=== PATIENT | male | born 1935 | race Caucasian/White ===

== ENCOUNTER 2018-01-16 11:25 | Inpatient (IN) | payer OTHER ==
[~2018-01-16] VITALS: Ht 165.1 cm; Wt 93.0 kg
--- NOTE | ~2018-01-16 | H ---
[facility] [place] [address] HISTORY AND PHYSICAL Name: KAYLEIGH DINH Room #: 170-15 ADM IN M.R.#: [id number] Admission: 01/16/18 Attend Phys: Humble Dickerson MD Discharge: Date of : 35 Report #: [id number] THIS REPORT FOR: //name// CC: FAM unknown Humble Dickerson DATE OF SERVICE: 01/16/2018 CHIEF COMPLAINT: Knee swelling, right more than the left, along with the pain. HISTORY OF PRESENT ILLNESS: The patient is an 82-year-old male with history of hypertension, coronary artery disease, BPH, who presented to the Emergency Room complaining of right knee pain and swelling. Symptoms have been ongoing over the last 3 to 4 days. Pain has been worsened to the point that he is unable to ambulate. The patient denies any fever or chills. The patient denies any recent trauma. No nausea or vomiting. PAST MEDICAL HISTORY: Significant for 1. Hypertension. 2. Coronary artery disease. 3. History of BPH. 4. History of appendectomy. ALLERGIES: ALLERGIC TO PENICILLIN AND ASPIRIN, please look at the nursing documentation for reaction. HOME MEDICATIONS: He takes a blood pressure pill, he does not know the name. He was on pain medication for a DJD in the past, and he has been out of his pain medication for the last 3 weeks. Apparently, his PCP told him to come and see him in February to get a refill. FAMILY HISTORY: Significant for hypertension, coronary artery disease. REVIEW OF SYSTEMS: CONSTITUTIONAL: No fever, no chills, no weight loss. EYES: No change in vision. THROAT: Denies any sore throat. CARDIOVASCULAR: No chest pain, dizziness, palpitation. RESPIRATORY: No cough or expectoration. GASTROINTESTINAL: No nausea or vomiting. GENITOURINARY: No dysuria, hematuria. NEUROLOGIC: No focal numbness or weakness of the extremities. PSYCHIATRIC: No anxiety and depression. The 12-point review of system is negative other than the positive and negative dictated in the history of present illness and the review of system. [address] [address] HISTORY AND PHYSICAL Name: KAYLEIGH DINH Room #: 170-15 [facility] IN .R.#: [id number] Admission: 01/16/18 Attend Phys: Humble Dickerson MD Discharge: Date of : 35 Report #: [id number] PHYSICAL EXAMINATION: VITAL SIGNS: Reveal blood pressure is 134/82, heart rate of 85 per minute, afebrile. GENERAL: The patient is awake and alert, not in acute respiratory distress. HEENT: Pupils equal, reactive to light, nonicteric conjunctivae. Throat appears normal. NECK: Supple, no JVD, no bruit, no lymphadenopathy. CARDIOVASCULAR SYSTEM: S1, S2, negative S3, no murmur. CHEST: Bilateral air entry present. Clear on auscultation. ABDOMEN: Soft, bowel sounds present, no mass, no organomegaly, no tenderness. PERIPHERY: No pedal edema. No calf tenderness. Dorsalis pedis 1+. NEUROLOGICAL: No gross motor or sensory deficit. EXTREMITIES: Right knee is swollen. There is effusion noted. No erythema noted. No increased warmth. There is marked tenderness on movement: Left knee. There is very mild swelling noted. LABORATORY DATA: Reviewed. White count is hemoglobin is 14.8, platelets 308. Sodium is 133, BUN and creatinine are 32 and 1.8. ASSESSMENT: 1. Right knee pain and swelling. Rule out degenerative joint disease, rule out gout, rule out any infectious etiology. We will go ahead and obtain an x-ray of both knees. We will consult Orthopedic Surgery. 2. Pain control. 3. Mild leukocytosis. We will repeat labs in the morning. 4. Chronic kidney disease stage 3, creatinine of 1.8. We will need to monitor closely. We will start him on gentle IV hydration. 5. History of hypertension and coronary artery disease. We will try to obtain his home medication list. 6. Deep venous thrombosis prophylaxis present. The patient will be presented with SCD on the legs for DVT prophylaxis until orthopedic evaluation planned. 7. 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 Treatment plan has been explained to the patient in detail. <ELECTRONICALLY SIGNED> By: Humble Dickerson MD 01/16/18 1607 [id number] Humble Dickerson MD /nt
--- NOTE | ~2018-01-16 | HC ---
[facility] [place] [address] CONSULTATION Name: KAYLEIGH DINH Room #: 454-P [facility] IN M.R.#: [id number] Admission: 01/16/18 Attend Phys: Humble Dickerson MD Discharge: Date of : 35 Report #: [id number] THIS REPORT FOR: //name// CC: FAM unknown Humble Dickerson REASON FOR CONSULTATION: I was asked to evaluate concerning fever and polyarthritis. HISTORY OF PRESENT ILLNESS: The patient is an 82-year-old presented on 01/16/2018, with diffuse joint pain and swelling. Most notable in his knees and ankles. It has been ongoing and worsening over the last 3 weeks. He has a history of psoriasis and rheumatoid arthritis. Also, reports degenerative arthritis. He denies any chills or sweats, although he has had fever. Also, reports a history of gout. He has been on anti-inflammatory medications in the past. He ran out of his medications and does not have a PCP currently. He has had no significant travel. REVIEW OF SYSTEMS: Notes no headache, pharyngitis symptoms, nausea, vomiting, or diarrhea. No dysuria or frequency. He has had a persistent nonproductive cough for several years. He has had coronary artery disease, but reports no chest pain or peripheral edema. ALLERGIES: ASPIRIN, PENICILLIN with swelling, does not know if he has tolerated any other beta-lactam antibiotics. MEDICATIONS: None prior to his admission. PAST MEDICAL HISTORY: Arthritis, degenerative rheumatoid; gout, hypertension, coronary artery disease, BPH, and appendectomy. FAMILY HISTORY: Rheumatoid arthritis. SOCIAL HISTORY: Nonsmoker, no significant alcohol intake. PHYSICAL EXAMINATION: VITAL SIGNS: Afebrile with maximum temperature 102.5 degrees earlier today. Hemodynamically stable. SKIN: He has evidence of seborrhea and psoriatic rash. No adenopathy. HEENT: Unremarkable. CHEST: Basilar crackles. No consolidation. HEART: Regular without murmur. ABDOMEN: Soft and nontender. No hepatosplenomegaly or mass. EXTREMITIES: Polyarthritis involving his hips, knees, ankles, distal feet, wrists, elbows, and shoulders. It seems most predominant in his lower extremities. The patient was unable to sit up in bed or roll over in bed. [facility] [address] [place] [address] CONSULTATION Name: KAYLEIGH DINH Room #: 454-P [facility] IN M.R.#: [id number] Admission: 01/16/18 Attend Phys: Humble Dickerson MD Discharge: Date of : 35 Report #: [id number] LABORATORY STUDIES: Ultrasound of lower extremities negative for DVT. Sedimentation rate 115. CRP 319. Chest x-ray, chronic scarring in both lower lobes. Hemoglobin 12.5, WBC 11.2, platelet count 257,000, 72% neutrophils, 20% lymphocytes. Sodium 136, potassium 3.4, bicarbonate 26, creatinine 1.7. Knee x-rays, [id number]-[id number] osteoarthritis in the right, mild osteoarthritis on the left. IMPRESSION: An 82-year-old with polyarthritis, psoriasis, renal failure, indeterminant if acute or chronic; basilar scarring with chronic cough, coronary artery disease. By his history, he reports rheumatoid arthritis and gouty arthritis in the past. Now with fever, I am suspecting related to his polyarthritis. This may be gouty in nature. We would recommend further workup to include SANDHYA, rheumatoid factor, uric acid, blood cultures, urinalysis with urine culture if appropriate, aspirate the joint for analysis, also screen human immunodeficiency virus. We will hold antibiotics tonight pending further studies. Could give dose of colchicine to see if this makes any effect prior to corticosteroids while we await aspiration of his joint. <ELECTRONICALLY SIGNED> By: Judd Govea MD 01/18/18 1429 02 57 Judd Govea MD /nt
[2018-01-16 11:26] VITALS: BP 134/82
[2018-01-16 13:00] LABS: BASOPHILS 0.9 % (0.0-2.0); HEMATOCRIT 41.9 % (42.0-52.0); HEMOGLOBIN 14.8 gm/dL (14.0-18.0); LYMPHOCYTES 8.5 % (24.0-44.0); MCH 32.8 pg (26.0-34.0); MCHC 35.4 g/dL (28.0-37.0); MCV 92.6 fL (80.0-100.0); MONOCYTES 10.3 % (1.0-8.0); PLATELET COUNT 308 thou/uL (150-400); POLYS 80.3 % (36.0-66.0); RBC 4.52 mil/uL (4.50-6.00); RDW 13.5 % (10.5-14.5); WBC 12.5 thou/uL (4.0-11.0)
[2018-01-16 13:07] LABS: CALCIUM 9.6 mg/dL (8.5-10.1); CREATININE 1.8 mg/dL (0.7-1.3); POTASSIUM 4.2 mmol/L (3.5-5.1)
[2018-01-16 22:34] VITALS: BP 114/62
[2018-01-17 00:07] VITALS: BP 123/63
[2018-01-17 04:33] VITALS: BP 128/67
[2018-01-17 07:03] LABS: HEMATOCRIT 35.6 % (42.0-52.0); HEMOGLOBIN 12.5 gm/dL (14.0-18.0); MCH 32.1 pg (26.0-34.0); MCHC 35.1 g/dL (28.0-37.0); MCV 91.4 fL (80.0-100.0); PLATELET COUNT 257 thou/uL (150-400); RDW 13.1 % (10.5-14.5); WBC 11.2 thou/uL (4.0-11.0)
[2018-01-17 07:11] LABS: CALCIUM 8.6 mg/dL (8.5-10.1); CREATININE 1.7 mg/dL (0.7-1.3); MAGNESIUM 2.3 mg/dL (1.8-2.4); POTASSIUM 3.4 mmol/L (3.5-5.1)
[2018-01-17 07:50] VITALS: BP 124/77
[2018-01-17 08:51] LABS: ABSOLUTE NEUTROPHILS 8.1 thou/uL (1.4-8.2); PLATELET ESTIMATE NORMAL
[2018-01-17] MEDS ORDERED: ICY HOT 4%-1%76.5 GM TOP (09:17)
[2018-01-17] MEDS ORDERED: HYDROCHLOROTH12.5 M1 PO (09:17)
[2018-01-17] MEDS ORDERED: OXYBUTYNIN ER 55 M1 PO (09:18)
[2018-01-17] MEDS ORDERED: PRAVACHOL40 MG PO (09:19)
[2018-01-17] MEDS ORDERED: PROSCAR 5MG TABL5 MG PO (09:19)
[2018-01-17] MEDS ORDERED: FLOMAX0.4 MG PO (09:20)
[2018-01-17 15:47] VITALS: BP 124/72
[2018-01-17 19:23] VITALS: BP 133/68
[2018-01-18 04:02] VITALS: BP 116/668; BP 116/68
[2018-01-18 07:30] LABS: HEMATOCRIT 35.2 % (42.0-52.0); HEMOGLOBIN 12.3 gm/dL (14.0-18.0); MCH 32.3 pg (26.0-34.0); MCV 92.1 fL (80.0-100.0); PLATELET COUNT 255 thou/uL (150-400); RBC 3.83 mil/uL (4.50-6.00); RDW 12.8 % (10.5-14.5); WBC 12.7 thou/uL (4.0-11.0)
[2018-01-18 07:42] LABS: CALCIUM 8.6 mg/dL (8.5-10.1); CREATININE 1.7 mg/dL (0.7-1.3); POTASSIUM 3.5 mmol/L (3.5-5.1)
[2018-01-18 08:00] VITALS: BP 109/68
[2018-01-18 08:24] LABS: % SATURATION 9 % (20-39); IRON 15 ug/dL (65-175); TIBC 165 ug/dL (250-450)
[2018-01-18 08:32] LABS: ABSOLUTE NEUTROPHILS 9.9 thou/uL (1.4-8.2)
[2018-01-18 08:43] LABS: ALBUMIN 2.5 g/dL (3.4-5.0); DIRECT BILIRUBIN 0.6 mg/dL (<0.1-0.3); TOTAL PROTEIN 6.9 g/dL (6.4-8.2)
[2018-01-18 08:51] LABS: FOLIC ACID 13.8 ng/mL (8.6-58.9)
[2018-01-18 09:05] LABS: URINE BLOOD TRACE (Negative); URINE CLARITY CLEAR; URINE GLUCOSE-RANDOM* TRACE (Negative); URINE KETONES NEGATIVE (Negative); URINE LEUKOCYTES-REFLEX NEGATIVE (Negative); URINE NITRITE-REFLEX NEGATIVE (Negative); URINE PROTEIN (DIPSTICK) 1+ (Negative); URINE UROBILINOGEN >= 8.0 E.U./dl (0.2-1.0)
[2018-01-18 09:06] LABS: URINE COLOR DK YELLOW
[2018-01-18 09:07] LABS: ICTOTEST (BILI CONFIRMATORY) Negative (Negative); URINE BILIRUBIN NEGATIVE (Negative)
[2018-01-18 09:14] LABS: CASTS None Seen /LPF (None Seen); MUCUS 0-3 Light strn/LPF (None Seen); SQUAMOUS 0-3 Few /LPF (0-3)
[2018-01-18 09:15] LABS: BACTERIA-REFLEX None Seen /HPF (None Seen); CRYSTALS None Seen /LPF (None Seen); URINE RBC None Seen /HPF (0-2); URINE WBC-REFLEX 0-5 Rare /HPF (0-5)
[2018-01-18 14:10] LABS: HIV ANTIBODY Non Reactive (Non Reactive)
[2018-01-18 16:00] VITALS: BP 117/59
[2018-01-18 17:00] LABS: SOURCE KNEE JOINT
[2018-01-18 17:07] LABS: CLARITY CLOUDY; COLOR RED; SOURCE KNEE JOINT; TOTAL VOLUME 5 mL
[2018-01-18 17:58] LABS: BF MACROPHAGE 2; BF NEUTROPHILS 96; BF NUCLEATED CELLS 10634; BF RBC 44605
[2018-01-18 20:17] VITALS: BP 111/62
[2018-01-19 03:36] VITALS: BP 111/69
[2018-01-19 07:54] VITALS: BP 121/74
[2018-01-19 08:46] LABS: SOURCE SYNOVIAL
[2018-01-19 09:13] LABS: ANA INTERPRETATION Negative (Negative)
[2018-01-19 09:30] VITALS: BP 121/74
[2018-01-19 16:40] VITALS: BP 123/72
[2018-01-19 17:09] LABS: BODY FLUID GLUCOSE 84 mg/dL (())
[2018-01-19 19:30] VITALS: BP 135/71
[2018-01-20 04:29] VITALS: BP 131/78
[2018-01-20 08:00] VITALS: BP 109/69
[2018-01-20 09:20] LABS: HEMATOCRIT 35.6 % (42.0-52.0); HEMOGLOBIN 12.6 gm/dL (14.0-18.0); MCH 32.5 pg (26.0-34.0); MCHC 35.4 g/dL (28.0-37.0); RBC 3.87 mil/uL (4.50-6.00); RDW 13.1 % (10.5-14.5); WBC 10.2 thou/uL (4.0-11.0)
[2018-01-20 09:33] LABS: ALBUMIN 2.6 g/dL (3.4-5.0); CALCIUM 9.3 mg/dL (8.5-10.1); CREATININE 1.5 mg/dL (0.7-1.3); MAGNESIUM 2.6 mg/dL (1.8-2.4); TOTAL BILIRUBIN 0.5 mg/dL (<0.1-1.0); TOTAL PROTEIN 7.4 g/dL (6.4-8.2)
[2018-01-20 12:12] VITALS: BP 109/69
[2018-01-20] MEDS ORDERED: COLCRYS0.6 MG PO (13:30)
[2018-01-20] MEDS ORDERED: PREDNISONE 10 M10 MG PO (13:31)
[2018-01-20] MEDS ORDERED: B12INJ PO (13:32)
== END 2018-01-20 13:47 | disposition home health service (06) | DRG 553 ==
LOC: ER 11:25 → 4W 12:57 → EROBS 12:57 → 4W 22:58
PROVIDERS: Emergency Medicine; Internal Medicine; Physician Assistant; Registered Nurse; Specialist
DX: M10.9 Gout, unspecified (principal); E43 Unspecified severe protein-calorie malnutrition; N17.9 Acute kidney failure, unspecified; M13.0 Polyarthritis, unspecified; I25.10 Atherosclerotic heart disease of native coronary artery without angina pectoris; N40.0 Benign prostatic hyperplasia without lower urinary tract symptoms; D72.829 Elevated white blood cell count, unspecified; N18.3 Chronic kidney disease, stage 3 (moderate); I12.9 Hypertensive chronic kidney disease with stage 1 through stage 4 chronic kidney disease, or unspecified chronic kidney disease; L40.9 Psoriasis, unspecified; G89.29 Other chronic pain; Z82.49 Family history of ischemic heart disease and other diseases of the circulatory system; Z88.6 Allergy status to analgesic agent; Z88.0 Allergy status to penicillin; Z90.49 Acquired absence of other specified parts of digestive tract; Z79.899 Other long term (current) drug therapy
CPT/HCPCS: 10040

== ENCOUNTER → 2018-03-15 | Outpatient (CLI) | payer OTHER ==
[~2018-03-15] VITALS: Ht 167.6 cm; Wt 93.7 kg
[~2018-03-15] MED LIST: B12INJ PO; COLCRYS0.6 MG PO; FLOMAX0.4 MG PO; HYDROCHLOROTH12.5 M1 PO; ICY HOT 4%-1%76.5 GM TOP; OXYBUTYNIN ER 55 M1 PO; PRAVACHOL40 MG PO; PREDNISONE 10 M10 MG PO; PROSCAR 5MG TABL5 MG PO
[2018-03-15 13:15] VITALS: BP 148/74
== END ==
LOC: SEN 08:59
DX: I10 Essential (primary) hypertension (principal); E78.5 Hyperlipidemia, unspecified; M10.9 Gout, unspecified; L40.9 Psoriasis, unspecified